=== PATIENT | female | born 1935 | race Caucasian/White ===

== ENCOUNTER 2016-08-07 21:31 | Emergency (ER) | payer MEDICARE, OTHER ==
[~2016-08-07] VITALS: Ht 154.9 cm; Wt 68.0 kg
[2016-08-07 21:31] VITALS: BP_SYST 150
[~2016-08-07 21:31] MED LIST: ASPI81TA2 PO; INSU100V26; INSU100V9; LISI40TA4 PO; METO-304 PO; PARO10TA75 PO
[2016-08-07 22:55] LABS: BILIRUBIN,URINE NEGATIVE (NEGATIVE); BLOOD, URINE 3+ (NEGATIVE); CLARITY/URINE SL HAZY (CLEAR); COLOR,URINE ORANGE (YELLOW); GLUCOSE,URINE TRACE (NEGATIVE); KETONES,URINE NEGATIVE (NEGATIVE); LEUKOCYTE ESTERASE ,URINE 3+ (NEGATIVE); NITRITE, URINE POSITIVE (NEGATIVE); PROTEIN URINE 3+ (NEGATIVE)
[2016-08-07 23:05] LABS: BACTERIA,URINE MANY /HPF (None Seen); WBC,URINE >100 /HPF (0-3)
[2016-08-07 23:06] LABS: MUCUS,URINE None Seen /LPF (None Seen)
[2016-08-07 23:26] VITALS: BP_SYST 143
[2016-08-07] MEDS ORDERED: KETOROLAC TROMETHAMINE 60 MG/2 ML VIAL IM ONE (23:30)
== END 2016-08-07 23:26 | disposition home or self-care (01) ==
LOC: SED 21:31
DX: N39.0 Urinary tract infection, site not specified (principal); E11.9 Type 2 diabetes mellitus without complications; I10 Essential (primary) hypertension; Z79.4 Long term (current) use of insulin; Z79.82 Long term (current) use of aspirin
CPT/HCPCS: 81000-TC; 82962; 87086; 99284

== ENCOUNTER 2018-03-27 23:59 | Emergency (ER) | payer OTHER ==
[~2018-03-27] VITALS: Ht 160 cm; Wt 65.8 kg
[~2018-03-27 23:59] MED LIST changes: +ASPI-1155 PO; -ASPI81TA2 PO; -METO-304 PO; +METO-540 PO
[2018-03-28] VITALS: BP_SYST 164
--- NOTE | 2018-03-28 | NUR ---
Patient to ER bed 3 to gown for evaluation. Side rails up. Report given from JOHNATHAN Obrien.
--- NOTE | 2018-03-28 00:14 | NUR ---
Pts blood sugar is 561. ER MD Dr. Santana notified.
--- NOTE | 2018-03-28 00:15 | NUR ---
Pt came into the Ed for altered level of consciousness brought in by the EMS. Per EMS, pt has been more altered than normal. Upon Pts arrival, blood sugar was 561. Pt AOx1. Pt from [facility]. HX of diabetes and hypertension. No other complaints/injuries noted. Will cont. to monitor.
--- NOTE | 2018-03-28 00:17 | NUR ---
ER at bedside examining patient.
--- NOTE | 2018-03-28 00:25 | NUR ---
# 20 gauge angiocath placed to L hand. Use of asceptic technique. Opsite placed over site. Blood return noted. Blood for lab drawn from site. Flushed with 10 cc of normal saline. No evidence of infiltration noted. Patient tolerated well.
--- NOTE | 2018-03-28 00:25 | NUR ---
Note undone in EDM - 03/28/18 at 0252 by [email or web address] # 30 gauge angiocath placed to L hand. Use of asceptic technique. Opsite placed over site. Blood return noted. Blood for lab drawn from site. Flushed with 10 cc of normal saline. No evidence of infiltration noted. Patient tolerated well.
[2018-03-28] MEDS ORDERED: INSULIN REGULAR, HUMAN 10 UNITS/0.1 ML INJ IVP ONE ×2 (00:30→03:00)
[2018-03-28] MEDS ORDERED: NACL 0.9% 1,000 ML IV ONE (00:30)
--- NOTE | 2018-03-28 01:02 | NUR ---
PT started on IV fluids per MD order. Tolerating well. Will cont. to monitor.
[2018-03-28 01:11] LABS: BASOPHILS # (AUTO) 0.1 K/uL (0.0-0.2); BASOPHILS % (AUTO) 0.8 % (0.0-2.0); EOSINOPHILS % (AUTO) 0.2 % (0.0-4.0); HEMATOCRIT 37.5 % (36-48); HEMOGLOBIN 11.9 g/dL (12.0-16.0); LYMPHOCYTES # (AUTO) 1.6 K/uL (1.0-5.5); LYMPHOCYTES % (AUTO) 20.3 % (20.5-51.5); MEAN CORPUSCULAR HEMOGLOBIN 29 pg (27-31); MEAN CORPUSCULAR HGB CONC 32 % (32-36); MEAN CORPUSCULAR VOLUME 93 fL (79.0-98.0); MONOCYTES # (AUTO) 0.5 K/uL (0.0-1.0); MONOCYTES % (AUTO) 6.5 % (1.7-9.3); NEUTROPHILS # (AUTO) 5.7 K/uL (1.8-7.7); NEUTROPHILS % (AUTO) 72.2 % (40.0-70.0); PLATELET COUNT (AUTO) 348 K/uL (130-430); RED BLOOD CELL COUNT(AUTO) 4.05 MIL/uL (4.2-6.2); RED CELL DISTRIBUTION WIDTH 13.7 % (9.0-15.0); WHITE BLOOD COUNT (AUTO) 7.9 K/uL (4.8-10.8)
[2018-03-28 01:22] LABS: ANION GAP 6 (5-15); CALCIUM 9.1 mg/dL (8.4-11.0); CHLORIDE 99 mmol/L (98-107); CREATININE 1.54 mg/dL (0.55-1.30); POTASSIUM 5.1 mmol/L (3.5-5.1); SODIUM SERUM 132 mmol/L (136-145); UREA NITROGEN, BLOOD 28 mg/dL (8-21)
[2018-03-28 01:30] LABS: ALANINE AMINOTRANSFERASE 35 U/L (12-78); ALBUMIN 3.4 g/dL (3.4-4.8); ASPARTATE AMINOTRANSFERASE 18 U/L (10-37); TOTAL BILIRUBIN 0.4 mg/dL (0.0-1.0)
[2018-03-28 01:34] LABS: GLUCOSE 564 mg/dL (70-99)
--- NOTE | 2018-03-28 02:02 | NUR ---
Pts blood sugar is 271. ER MD Dr. Santana notified.
[2018-03-28 02:34] LABS: BILIRUBIN,URINE NEGATIVE (NEGATIVE); CLARITY/URINE CLEAR (CLEAR); COLOR,URINE YELLOW (YELLOW); GLUCOSE,URINE 3+ (NEGATIVE); KETONES,URINE NEGATIVE (NEGATIVE); LEUKOCYTE ESTERASE ,URINE NEGATIVE (NEGATIVE); NITRITE, URINE NEGATIVE (NEGATIVE); PH,URINE 5.5 (5.0-8.0); PROTEIN URINE 2+ (NEGATIVE); UROBILINOGEN,URINE 0.2 (0.2-1.0)
[2018-03-28 02:35] LABS: BLOOD, URINE TRACE (NEGATIVE)
--- NOTE | 2018-03-28 02:35 | NUR ---
Medication reconciliation completed with information provided by SonAkash. Any prior medication reconciliation on file was reviewed and corrected.
[2018-03-28] MEDS ORDERED: GABA-531 PO (02:39)
[2018-03-28] MEDS ORDERED: FURO-150 PO (02:39)
[2018-03-28] MEDS ORDERED: TYC3 PO (02:39)
[2018-03-28] MEDS ORDERED: POTA8TAB4 PO (02:39)
[2018-03-28] MEDS ORDERED: BACL10TA PO (02:39)
[2018-03-28] MEDS ORDERED: ASPI-1155 PO (02:39)
[2018-03-28 03:03] LABS: BACTERIA,URINE FEW /HPF (None Seen); WBC,URINE 0-3 /HPF (0-3); YEAST,URINE Few /HPF (None Seen)
--- NOTE | 2018-03-28 03:04 | NUR ---
Pt medicated with Novolin Regular 12 units per MD order. Tolerating well. Will cont. to monitor.
[2018-03-28] MEDS ORDERED: ENALAPRILAT DIHYDRATE 1.25 MG/ML VIAL IVP ONE (04:00)
[2018-03-28] MEDS ORDERED: GABAPENTIN 100 MG CAPSULE PO ONE (04:00)
--- NOTE | 2018-03-28 04:08 | NUR ---
Pt medicated with gabapentin 300 mg PO per MD order. Tolerating well. Will cont. to monitor.
--- NOTE | 2018-03-28 04:10 | NUR ---
Pt medicated with Vasotec IVP per MD order. Tolerating well. Will cont. to monitor.
--- NOTE | 2018-03-28 05:35 | NUR ---
Pt transferred to [facility] via BLS. Pts last BP was 159/63. Report given for pt. IV removed.
[2018-03-28 05:45] VITALS: BP_SYST 192
--- NOTE | 2018-03-28 05:45 | NUR ---
Patient given written and verbal discharge instructions and verbalizes understanding. ER MD Dr. Santana discussed with patient the results and treatment provided. Patient in stable condition. ID arm band removed. IV catheter removed intact and dressing applied, no active bleeding. Patient educated on pain management and to follow up with PMD within 2-3 days. Pain Scale 0/10. Opportunity for questions provided and answered. Medication side effect fact sheet provided.
== END 2018-03-28 05:45 ==
LOC: SED 23:59
DX: E11.40 Type 2 diabetes mellitus with diabetic neuropathy, unspecified (principal); G31.84 Mild cognitive impairment of uncertain or unknown etiology; I10 Essential (primary) hypertension; Z79.82 Long term (current) use of aspirin; Z79.899 Other long term (current) drug therapy
CPT/HCPCS: 36415; 80053; 81000; 82962; 85025; 96374; 96375; 96376; 99283; J1815; J7030